=== PATIENT | male | born 1960 | race Caucasian/White ===

== ENCOUNTER → 2021-11-19 14:00 | Outpatient (BNVA) | payer MEDICAID, SELFPAY | PROVIDERS: Family Provider Family Medicine; PCP Family Medicine; Referring Provider Nurse Practitioner Family; Visit Provider Podiatrist Foot & Ankle Surgery | DX: M21.6X1 Other acquired deformities of right foot (principal); M21.6X2 Other acquired deformities of left foot; M92.61 Juvenile osteochondrosis of tarsus, right ankle; M92.62 Juvenile osteochondrosis of tarsus, left ankle; M76.61 Achilles tendinitis, right leg; M76.62 Achilles tendinitis, left leg; M79.673 Pain in unspecified foot | CPT/HCPCS: 73630; 99203; 99204 ==

== ENCOUNTER → 2022-01-20 13:12 | Outpatient (BNVA) | payer MEDICAID, SELFPAY | PROVIDERS: Family Provider Family Medicine; PCP Family Medicine; Visit Provider Podiatrist Foot & Ankle Surgery | DX: M21.6X1 Other acquired deformities of right foot (principal); M21.6X2 Other acquired deformities of left foot; M92.61 Juvenile osteochondrosis of tarsus, right ankle; M92.62 Juvenile osteochondrosis of tarsus, left ankle; M76.61 Achilles tendinitis, right leg; M76.62 Achilles tendinitis, left leg | CPT/HCPCS: 99213 ==

== ENCOUNTER → 2022-04-04 08:03 | Outpatient (BNVA) | payer MEDICAID, SELFPAY | PROVIDERS: Family Provider Family Medicine; PCP Family Medicine; Visit Provider Podiatrist Foot & Ankle Surgery | DX: M21.6X1 Other acquired deformities of right foot (principal); M21.6X2 Other acquired deformities of left foot; M92.61 Juvenile osteochondrosis of tarsus, right ankle; M92.62 Juvenile osteochondrosis of tarsus, left ankle; M76.61 Achilles tendinitis, right leg; M76.62 Achilles tendinitis, left leg; L60.3 Nail dystrophy | CPT/HCPCS: 99214 ==

== ENCOUNTER → 2022-04-21 07:52 | Outpatient (BNVA) | payer MEDICAID, SELFPAY | PROVIDERS: Family Provider Family Medicine; PCP Family Medicine; Visit Provider Podiatrist Foot & Ankle Surgery | DX: L60.2 Onychogryphosis (principal); L60.0 Ingrowing nail | CPT/HCPCS: 11750 ==

== ENCOUNTER → 2022-10-17 09:56 | Outpatient (BNVA) | payer MEDICAID, SELFPAY | PROVIDERS: Family Provider Family Medicine; PCP Family Medicine; Visit Provider Podiatrist Foot & Ankle Surgery | DX: M76.61 Achilles tendinitis, right leg (principal); M76.62 Achilles tendinitis, left leg; M21.6X1 Other acquired deformities of right foot; M21.6X2 Other acquired deformities of left foot; M92.61 Juvenile osteochondrosis of tarsus, right ankle; M92.62 Juvenile osteochondrosis of tarsus, left ankle; L60.3 Nail dystrophy | CPT/HCPCS: 99214 ==

== ENCOUNTER 2022-11-22 15:01 | Outpatient (CLI) | payer MEDICAID, SELFPAY ==
--- NOTE | 2022-11-22 15:15 | MR_ITS ---
WS: [id number] MRI RIGHT FOOT without CONTRAST. COMPARISON: Radiograph 11/19/2021 Multiplanar, multisequence imaging is performed without contrast. Very mild intermediate T2 increased signal in the distal Achilles tendon consistent with mild tendino osman. Only a small portion of the Achilles tendon is included on the sagittal projection. The attach ment site of the Achilles tendon appears normal. No thinning or enlargement. No central edema. There is a very tiny amount of fluid in the retrocalcaneal bursa. Normal marrow signal within the calcaneus . There is only minimal prominence of the posterior superior margin of the calcaneus. No joint effusi on. Plantar fascia is normal. Peroneal brevis and longus tendons as visualized are normal. Posterior tibi al and flexor digitorum and hallucis longus tendons are appropriate. No fluid within the tendon sheat h. No marrow edema. MR/MR foot RT wo con* [id number] IMPRESSION: 1. Very mild distal Achilles tendinopathy. 2. Minimal fluid in the retroperitoneal bursa. 3. Minimal Marsha deformity. 4. Visualized tendons and ligaments are normal
== END 2022-11-22 15:02 | disposition home or self-care (01) ==
PROVIDERS: PCP Family Medicine; Visit Provider Podiatrist Foot & Ankle Surgery
DX: M76.61 Achilles tendinitis, right leg (principal)
CPT/HCPCS: 73718

== ENCOUNTER → 2022-12-26 07:11 | Outpatient (BNVA) | payer MEDICAID, SELFPAY | PROVIDERS: PCP Family Medicine; Visit Provider Podiatrist Foot & Ankle Surgery | DX: M21.6X1 Other acquired deformities of right foot; M21.6X2 Other acquired deformities of left foot; M92.61 Juvenile osteochondrosis of tarsus, right ankle; M92.62 Juvenile osteochondrosis of tarsus, left ankle; M76.61 Achilles tendinitis, right leg; M76.62 Achilles tendinitis, left leg | CPT/HCPCS: 99213 ==

== ENCOUNTER → 2024-05-20 14:30 | Outpatient (BNVA) | payer MEDICAID, SELFPAY | PROVIDERS: PCP Family Medicine; Visit Provider Podiatrist Foot & Ankle Surgery | DX: M21.6X1 Other acquired deformities of right foot (principal); M21.6X2 Other acquired deformities of left foot; M92.61 Juvenile osteochondrosis of tarsus, right ankle; M92.62 Juvenile osteochondrosis of tarsus, left ankle | CPT/HCPCS: 99213 ==

== ENCOUNTER 2024-05-23 12:01 | Outpatient (CLI) | payer MEDICAID, SELFPAY ==
--- NOTE | 2024-05-23 12:15 | MR_ITS ---
WS: [id number] MRI RIGHT ANKLE WITHOUT CONTRAST. COMPARISON: 11/22/2022 MRI foot. Multiplanar, multisequence imaging is performed without contrast. There is a small amount of increased T2 signal in the central Achilles tendon which is likely consist ent with an intrasubstance tear. Similar findings were noted on the prior MRI from 2022 with slight i mprovement in the overall signal. There is no full-thickness tear. No retrocalcaneal bursitis. Achill es tendon measures 5 mm. No marrow edema or fracture. No osteochondral lesions along the talar dome. Ankle syndesmosis is norm al. No joint effusion. Peroneal tendons, flexor hallucis longus and flexor digitorum longus are normal. No signal abnormalit ies or tears. Flexor tendons are normal. Anterior and posterior talofibular ligaments are normal. The anterior inferior tibiofibular ligaments normal. Normal deltoid ligament. Normal calcaneofibular lig ament. MR/MR ankle RT wo con* [id number] IMPRESSION: 1. Increased fluid signal in the central distal Achilles tendon. No full-thick ness tear. This is most consistent with an intrasubstance tear. Similar finding s were noted within the Achilles tendon on 11/22/2022 with slight improvement. 2. Ligaments and tendons are normal. 3. No marrow edema or fracture.
== END 2024-05-23 12:02 | disposition home or self-care (01) ==
PROVIDERS: PCP Family Medicine; Visit Provider Podiatrist Foot & Ankle Surgery
DX: M76.61 Achilles tendinitis, right leg (principal); M21.6X1 Other acquired deformities of right foot; M21.6X2 Other acquired deformities of left foot
CPT/HCPCS: 73721

== ENCOUNTER → 2024-07-29 14:25 | Outpatient (BNVA) | payer MEDICAID, SELFPAY | PROVIDERS: PCP Family Medicine; Visit Provider Podiatrist Foot & Ankle Surgery | DX: M92.61 Juvenile osteochondrosis of tarsus, right ankle (principal); M92.62 Juvenile osteochondrosis of tarsus, left ankle; M21.6X1 Other acquired deformities of right foot; M21.6X2 Other acquired deformities of left foot; Z01.818 Encounter for other preprocedural examination; S86.011D Strain of right Achilles tendon, subsequent encounter; M67.873 Other specified disorders of tendon, right ankle and foot; X58.XXXD Exposure to other specified factors, subsequent encounter | CPT/HCPCS: 99214 ==

== ENCOUNTER 2024-08-30 08:29 | Day surgery (SDC) | payer MEDICAID, SELFPAY ==
[2024-08-30] VITALS (10 sets, daily range): BP systolic 108–136; BP diastolic 63–85; PULSE 54–81; RESP 16–20; TEMP 36.1–36.5; O2SAT 93–98; BMI 26.7
[2024-08-30] MEDS: sodium chloride 0.9% 1,000 ML 30 ML IV (09:01)
--- NOTE | 2024-08-30 09:21 | ANES.PREANE2 ---
Pre-Anesthetic Assessment Height/Weight: Height 1.8 m Weight 87.09 kg Temp Pulse Resp BP Pulse Ox O2 Del Method 97.7 F 54 L 18 136/85 97 Room Air 08/30/24 08:47 08/30/24 08:47 08/30/24 08:47 08/30/24 08:47 08/30/24 08:47 08/30/24 08:47 Preop Diagnosis: Achilles tendinosis, Marsha's deformity, equinus all right lower extremity Operation Date: 08/30/24 09:50 Proposed Procedures p Right Haglunds Resection(Right) - ANASTACIO Louis Right Achilles Repair(Right) - ANASTACIO Louis Right Gastrocnemius Recession(Right) - ANASTACIO Louis Right flexor tendon transfer(Right) - Juan Yap DPM Familial anesthetic complications: None Was Beta Dipesh taken within 24 hours: N/A Was Clonidine taken within 24 hours: N/A Last intake: Intake Last Liquid Date 08/29/24 Last Liquid Time 22:00 Last Solid Date 08/29/24 Last Solid Time 22:00 Social Tobacco and No alcohol Exam alert, oriented x 3, clear to auscultation bilaterally and regular rate & rhythm Airway Mallampati: Class II Dentition: chipped Pulmonary Asthma and Chronic Obstructive Pulmonary Disease GI Gastroesophageal Reflux Disease Anesthetic Plan ASA status: 3 Anesthesia: General and Regional (specify below) Risk of > 500 ml blood loss (7ml/kg in children): No Medications/Allergies Home Medications ?Medication ?Instructions ?Recorded ?Confirmed ?Last Taken ?Type ohhhduqabf-mfwifupjajkvg-eksfaakh 1 ea PO PRN PRN Migraine Headache 11/19/21 08/29/24 08/29/24 History 50 mg-325 mg-40 mg tablet fenofibrate nanocrystallized 145 145 mg PO DAILY 11/19/21 08/29/24 08/29/24 History mg tablet (Tricor) methocarbamol 500 mg tablet 750 mg PO QID 11/19/21 08/29/24 08/30/24 History oxycodone 10 mg tablet,crush 10 mg PO BID 11/19/21 08/29/24 08/29/24 History resistant,extended release 12 hr (OxyContin) ropinirole 2 mg tablet 2 mg PO DAILY 06/08/29/24 08/28/24 History rosuvastatin 20 mg tablet 20 mg PO DAILY 11/19/21 08/29/24 08/29/24 History sumatriptan succinate 100 mg tablet 100 mg PO PRN PRN Migraine Headache 11/19/21 08/29/24 08/28/24 History cetirizine 10 mg tablet 10 mg PO DAILY 08/29/24 08/29/24 08/29/24 History diphenhydramine HCl 50 mg capsule 100 mg PO BEDTIME 08/29/24 08/29/24 08/29/24 History fluticasone propionate 220 1 puff inhalation BID 08/29/24 08/29/24 Unknown History mcg/actuation HFA aerosol inhaler galcanezumab-gnlm 120 mg/mL 120 mg SUBCUT MO 08/29/24 08/29/24 08/26/24 History subcutaneous pen injector (Emgality Pen) ipratropium 20 mcg-albuterol 100 2 puff inhalation TID 08/29/24 08/29/24 Unknown History mcg/actuation mist for inhalation (Combivent Respimat) meloxicam 15 mg tablet 15 mg PO DAILY 08/29/24 08/29/24 08/29/24 History oxycodone 10 mg tablet 10 mg PO QID 08/29/24 08/29/24 08/30/24 History pantoprazole 40 mg tablet,delayed 40 mg PO BID 08/29/24 08/29/24 08/29/24 History release pregabalin 200 mg capsule 200 mg PO BID 08/29/24 08/29/24 08/30/24 History sucralfate 1 gram tablet 1 g PO QID 08/29/24 08/29/24 08/29/24 History topiramate 100 mg tablet 100 mg PO BID 08/29/24 08/29/24 08/30/24 History Allergies Allergy/AdvReac Type Severity Reaction Status Date / Time No Known Allergies Allergy Verified 08/29/24 09:28 Current Medications Generic Name Dose Route Start Last Admin Trade Name Freq PRN Reason Stop Dose Admin Sodium Chloride 1,000 mls @ 30 mls/hr 08/30/24 08:45 08/30/24 09:01 Sodium Chloride 0.9% IV 08/31/24 08:44 30 mls/hr .Q24H NIKI Administration PFSH Anesthesia Social History Smoking and tobacco/nicotine status: current every day tobacco/nicotine user Data Anesthesia Cardiac Studies: No Data to Display
--- NOTE | 2024-08-30 09:22 | ANES.PROC ---
Anesthesia Procedures Procedure/Date: 08/30/24 Nerve Block ^: Nerve Block 1: Main Anesthesia: general anesthesia Time Out Performed: Yes Consent: requested by attending/covering physician, from patient, from other, risks and benefits reviewed and patient agrees to proceed Nerve block location: popliteal (R) Anesthesia monitors applied: pulse oximetry, EKG, BP cuff and oxygen Nerve block position: supine Anesthetic Used: ropivicaine 0.5% (30 ml) and with decadron (4 mg) Ultrasound used to: recognize landmarks Nerve Stimulator Used?: No Interscalene/Femoral BLK: 4 stimuplex 21 g needle used for position and inplane approach, visualize local anesthetic spread and no vascular puncture identified Injection: neg aspiration of heme Patient Tolerated Procedure: well and no complications Complications: none
--- NOTE | 2024-08-30 09:31 | W.PM.OPSUD ---
Surgery/Procedure H&P Update DATE OF PROCEDURE: August 30, 2024 DATE H&P PERFORMED: 08/30/24 H&P UPDATE INFORMATION: I have reviewed H&P completed within last 30 days, I have examined patient prior to procedure, No changes to prior documentation and Risks and benefits of the procedure reviewed PREOP DIAGNOSIS: Achilles tendinosis, Marsha's deformity, equinus all right lower extremity PLANNED PROCEDURE: Operation Date: 08/30/24 09:50 Proposed Procedures p Right Haglunds Resection(Right) - ANASTACIO Louis Right Achilles Repair(Right) - ANASTACIO Louis Right Gastrocnemius Recession(Right) - ANASTACIO Louis Right flexor tendon transfer(Right) - Juan Yap DPM
--- NOTE | 2024-08-30 09:31 | PM.OPSURHP ---
Providers/Chief Complaint Primary Care Provider: Cinthia Cho DO Chief Complaint: M21.6X1 History of Present Illness Donnie Lindsey is a 64 year old male presenting with right-sided Marsha's deformity and Achilles tendinosis. He has been receiving conservative treatment for the past 2-1/2 years, including physical therapy, activity modifications, anti-inflammatory medications, and orthotics, all of which have been unsuccessful. An MRI of the right foot, completed on May 23, 2024, indicated increased fluid signal in the central distal Achilles tendon, consistent with tendinosis, as well as an intrasubstance tear. Additionally, an X-ray showed a pronounced Marsha's bump contributing to ongoing tendinosis. These findings have led to consideration for surgical intervention due to the persistence of symptoms and lack of improvement with nonsurgical measures. Review of Systems General: Reports: 10 or more systems reviewed and unremarkable except in HPI and below Const: Denies: fever(s) or chills Eyes: Denies: change in vision Card: Denies: chest pain or palpitations Resp: Denies: dyspnea or productive cough GI: Denies: abdominal pain, nausea or vomiting : Denies: flank pain Musc: Reports: extremity pain, joint pain, joint stiffness, limited range of motion and deformity Skin/Breast: Reports: skin tenderness; Denies: rash Neuro: Reports: difficulty walking; Denies: numbness in extremities, sensory changes or frequent falls Psych: Denies: suicidal ideation Jorge/Lymph: Denies: easy bruising Medications/Allergies Home Medications ?Medication ?Instructions ?Recorded ?Confirmed ?Last Taken ?Type gxiaadlfpc-gwuknsyrvmgoi-pbmsdoly 1 ea PO PRN PRN Migraine Headache 11/19/21 08/29/24 08/29/24 History 50 mg-325 mg-40 mg tablet fenofibrate nanocrystallized 145 145 mg PO DAILY 11/19/21 08/29/24 08/29/24 History mg tablet (Tricor) methocarbamol 500 mg tablet 750 mg PO QID 11/19/21 08/29/24 08/30/24 History oxycodone 10 mg tablet,crush 10 mg PO BID 11/19/21 08/29/24 08/29/24 History resistant,extended release 12 hr (OxyContin) ropinirole 2 mg tablet 2 mg PO DAILY 11/19/21 08/29/24 08/28/24 History rosuvastatin 20 mg tablet 20 mg PO DAILY 11/19/21 08/29/24 08/29/24 History sumatriptan succinate 100 mg tablet 100 mg PO PRN PRN Migraine Headache 11/19/21 08/29/24 08/28/24 History cetirizine 10 mg tablet 10 mg PO DAILY 08/29/24 08/29/24 08/29/24 History diphenhydramine HCl 50 mg capsule 100 mg PO BEDTIME 08/29/24 08/29/24 08/29/24 History fluticasone propionate 220 1 puff inhalation BID 08/29/24 08/29/24 Unknown History mcg/actuation HFA aerosol inhaler galcanezumab-gnlm 120 mg/mL 120 mg SUBCUT MO 08/29/24 08/29/24 08/26/24 History subcutaneous pen injector (Emgality Pen) ipratropium 20 mcg-albuterol 100 2 puff inhalation TID 08/29/24 08/29/24 Unknown History mcg/actuation mist for inhalation (Combivent Respimat) meloxicam 15 mg tablet 15 mg PO DAILY 08/29/24 08/29/24 08/29/24 History oxycodone 10 mg tablet 10 mg PO QID 08/29/24 08/29/24 08/30/24 History pantoprazole 40 mg tablet,delayed 40 mg PO BID 08/29/24 08/29/24 08/29/24 History release pregabalin 200 mg capsule 200 mg PO BID 08/29/24 08/29/24 08/30/24 History sucralfate 1 gram tablet 1 g PO QID 08/29/24 08/29/24 08/29/24 History topiramate 100 mg tablet 100 mg PO BID 08/29/24 08/29/24 08/30/24 History Allergies Allergy/AdvReac Type Severity Reaction Status Date / Time No Known Allergies Allergy Verified 08/29/24 09:28 PFSH PFSH: Social History Smoking and tobacco/nicotine status: current every day tobacco/nicotine user Vital Signs Vitals Signs: Last Vital Signs Temp 97.7 F 08/30/24 08:47 Pulse 54 L 08/30/24 08:47 Resp 18 08/30/24 08:47 BP 136/85 08/30/24 08:47 Pulse Ox 97 08/30/24 08:47 O2 Del Method Room Air 08/30/24 08:47 Weight: Weight last 48 hrs Weight 192 lb Physical Exam Narrative: EXAM NARRATIVE: Patient is alert and oriented ?3 and in no acute distress.? The following is a focused bilateral lower extremity exam. VASCULAR: Dorsalis pedis and posterior tibial arteries palpable +2.? Capillary refill time less than 3 seconds to the distal hallux bilaterally. Calf is supple and nontender proximally and distally.? No pedal edema appreciated.? Pedal hair growth present. NEUROLOGICAL: Epicritic and protopathic sensations grossly intact to the lower extremities.? +2 Achilles tendon reflex noted bilaterally.? Negative Tinel sign upon percussion of lower extremity nerves. DERMATOLOGICAL: Significantly dystrophic great toenail right greater than left greater than 1 cm thick.? Discoloration with subungual debris present.? No erythema, warmth, drainage, no wounds to the bilateral lower extremity. MUSCULOSKELETAL: Osseous prominence at the posterior superior lateral aspect of the calcaneal tubercle at insertion of Achilles tendon bilaterally.? Cavus foot type bilaterally.? Pain to palpation at insertion of Achilles tendon bilaterally.? No palpable dell or pain at the watershed zone bilaterally.? Muscle strength 5 out of 5 in all 3 cardinal planes to the bilateral foot and ankle.? 12 degrees of dorsiflexion of the bilateral ankle. CARDIOVASCULAR: S1, S2, normal rate, normal rhythm. Dorsalis pedis and posterior tibial arteries palpable. LUNGS: Clear to auscltation, no use of acessory muscles, no crackles or wheezes. Data Other data: : 1960 Age/Sex: 64 / M ADM Date: 05/23/24 Loc: RAD Room/Bed: Attending Dr: Juan Yap DPM Ordering Provider/Ordering MD: Juan Yap DPM Date of Service: 05/23/24 Procedure(s): MR ankle RT wo con* [id number] Accession Number(s): [id number] Report Number: [id number] WS: [id number] MRI RIGHT ANKLE WITHOUT CONTRAST. COMPARISON: 11/22/2022 MRI foot. Multiplanar, multisequence imaging is performed without contrast. There is a small amount of increased T2 signal in the central Achilles tendon which is likely consistent with an intrasubstance tear. Similar findings were noted on the prior MRI from 2022 with slight improvement in the overall signal. There is no full-thickness tear. No retrocalcaneal bursitis. Achilles tendon measures 5 mm. No marrow edema or fracture. No osteochondral lesions along the talar dome. Ankle syndesmosis is normal. No joint effusion. Peroneal tendons, flexor hallucis longus and flexor digitorum longus are normal. No signal abnormalities or tears. Flexor tendons are normal. Anterior and posterior talofibular ligaments are normal. The anterior inferior tibiofibular ligaments normal. Normal deltoid ligament. Normal calcaneofibular ligament. MR/MR ankle RT wo con* [id number] IMPRESSION: 1. Increased fluid signal in the central distal Achilles tendon. No full-thickness tear. This is most consistent with an intrasubstance tear. Similar findings were noted within the Achilles tendon on 11/22/2022 with slight improvement. 2. Ligaments and tendons are normal. 3. No marrow edema or fracture. Dictated By: Karen Ordonez DO Signed By: A&P Assessment and plan (1) Achilles tendinosis of right ankle: (2) Partial tear of right Achilles tendon: Qualifiers: Encounter type: subsequent encounter Qualified Code(s): S86.011D - Strain of right Achilles tendon, subsequent encounter (3) Marsha's deformity of right heel: (4) Right foot pain: (5) Equinus contracture of right ankle: Plan - Imaging: MRI of right foot on May 23, 2024, showing increased fluid signal in the central distal Achilles tendon, consistent with tendinosis, and an intrasubstance tear. X-ray confirming Marsah's bump on the right foot. 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 MRI findings reveal increased fluid signal in the Achilles tendon consistent with tendinosis, and an intrasubstance tear, both corroborated by imaging studies which demonstrated a significant bony protrusion contributing to tendon irritation. These clinical and imaging findings necessitate consideration of surgical options for symptom relief and functional improvement. Upon failure of extensive nonsurgical treatment, surgical repair of the Achilles tendon is planned. The procedure will be conducted on an outpatient basis under general anesthesia with a popliteal block. Detailed discussions regarding procedure, risks, expected outcomes, and rehabilitation were conducted. Upon failure of extensive nonsurgical treatment, surgical repair of the Achilles tendon is planned. The procedure will be conducted on an outpatient basis under general anesthesia with a popliteal block. Detailed discussions regarding procedure, risks, expected outcomes, and rehabilitation were conducted. The decision to pursue surgical intervention is based on the chronic nature of the patient's condition and his lack of response to extensive conservative management for Marsha's deformity and right-sided Achilles tendinosis. Given the MRI findings of tendinosis and an intrasubstance tear, as well as the confirmed presence of a contributing Marsha's bump, surgical intervention offers the best probability for symptom relief and functional pentecostalism. The planned procedures include Marsha's resection and Achilles tendon repair under general anesthesia with a popliteal block. Risks, benefits, and expected recovery were thoroughly outlined, ensuring the patient's understanding and agreement to proceed with the surgical plan. I reviewed at length with the patient, the risks, potential complications, benefits, alternatives, expectations, and typical outcomes associated with the surgery. The risks and potential complications were explained in detail, including but not limited to infection, wound dehiscence or soft tissue complications, bleeding and hematoma, chronic edema, neuritis or nerve damage producing numbness or chronic pain, CRPS, failure to relieve pain or worsening pain, thick / painful / unsightly scar, limited motion / stiffness, malposition, delayed union, malunion, or nonunion, fracture, reaction to implants, anesthetic complications, venous thromboembolism, and deformity recurrence. I discussed the notion of no regrets with the patient as it pertains to complications and outcomes. The patient seemed to understand the nature of the proposed care and required convalescence. They asked appropriate questions, answered to their satisfaction. They are aware no guarantees can be made as to a satisfactory outcome and they understand there may be other possible unforeseen complications or outcomes not listed here that will be treated accordingly if they arise. There were no written or implied guarantees given to the patient. They gave informed consent to proceed. Scheduled for outpatient surgery August 30, 2024, right Joe's resection and Achilles tendon repair. General anesthetic, prone, right popliteal block, mini C arm, Arthrex, 45 minutes PDMP PDMP Reviewed: Not Reviewed Coding Level of Care Code Acute Code for Chg Fwd Diagnoses Achilles tendinosis of right ankle M67.873 Partial tear of right Achilles tendon, subsequent encounter S86.011D Encounter type: subsequent encounter Marsha's deformity of right heel M92.61 Right foot pain M79.671 Equinus contracture of right ankle M24.571
[2024-08-30] MEDS: ceFAZolin 2,000 mg SDV 2000 MG IVP (09:37)
--- NOTE | 2024-08-30 10:54 | P.BOP_ITS ---
Date of Procedure: 08/18/23 Surgeon: Juan Yap DPM Accounting Policy Consultant(s): Barbara Damon Procedure(s) performed: Right Marsha's resection and Achilles tendon repair Findings of the procedure(s): Right Marsha's deformity and right Achilles tendon tear with tendinosis Estimated blood loss: 2 mL Specimen(s) removed: No specimens removed Post-operative diagnosis: Right Marsha's deformity and right Achilles tendon tear
--- NOTE | 2024-08-30 10:54 | PM.OP ---
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 CPT code 42252 2) right Achilles repair. CPT code 04049 Implants: Arthrex speed bridge with ripstop, 2-0 Vicryl, 3-0 Vicryl for nylon Specimens removed/disposition: no specimens Surgeon: Juan Yap DPM Vision Specialist: Beatriz Estimated blood loss: 2 mL 36 minutes IV fluids: See intraoperative documentations Urine output: None Complications: None Brief History: - Imaging: MRI of right foot on May 23, 2024, showing increased fluid signal in the central distal Achilles tendon, consistent with tendinosis, and an intrasubstance tear. X-ray confirming Marsha's bump on the right foot. 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 MRI findings reveal increased fluid signal in the Achilles tendon consistent with tendinosis, and an intrasubstance tear, both corroborated by imaging studies which demonstrated a significant bony protrusion contributing to tendon irritation. These clinical and imaging findings necessitate consideration of surgical options for symptom relief and functional improvement. Upon failure of extensive nonsurgical treatment, surgical repair of the Achilles tendon is planned. The procedure will be conducted on an outpatient basis under general anesthesia with a popliteal block. Detailed discussions regarding procedure, risks, expected outcomes, and rehabilitation were conducted. Upon failure of extensive nonsurgical treatment, surgical repair of the Achilles tendon is planned. The procedure will be conducted on an outpatient basis under general anesthesia with a popliteal block. Detailed discussions regarding procedure, risks, expected outcomes, and rehabilitation were conducted. The decision to pursue surgical intervention is based on the chronic nature of the patient's condition and his lack of response to extensive conservative management for Marsha's deformity and right-sided Achilles tendinosis. Given the MRI findings of tendinosis and an intrasubstance tear, as well as the confirmed presence of a contributing Marsha's bump, surgical intervention offers the best probability for symptom relief and functional yazidi. The planned procedures include Marsha's resection and Achilles tendon repair under general anesthesia with a popliteal block. Risks, benefits, and expected recovery were thoroughly outlined, ensuring the patient's understanding and agreement to proceed with the surgical plan. I reviewed at length with the patient, the risks, potential complications, benefits, alternatives, expectations, and typical outcomes associated with the surgery. The risks and potential complications were explained in detail, including but not limited to infection, wound dehiscence or soft tissue complications, bleeding and hematoma, chronic edema, neuritis or nerve damage producing numbness or chronic pain, CRPS, failure to relieve pain or worsening pain, thick / painful / unsightly scar, limited motion / stiffness, malposition, delayed union, malunion, or nonunion, fracture, reaction to implants, anesthetic complications, venous thromboembolism, and deformity recurrence. I discussed the notion of no regrets with the patient as it pertains to complications and outcomes. The patient seemed to understand the nature of the proposed care and required convalescence. They asked appropriate questions, answered to their satisfaction. They are aware no guarantees can be made as to a satisfactory outcome and they understand there may be other possible unforeseen complications or outcomes not listed here that will be treated accordingly if they arise. There were no written or implied guarantees given to the patient. They gave informed consent to proceed. Procedure: Anesthesia and Positioning: After obtaining informed consent, the patient was taken to the operating room and placed under general anesthesia with preoperative right popliteal block per anesthesia. The patient was positioned prone on the operating table with appropriate padding under the bony prominences. 2. Preparation and Drape: The right lower extremity was prepped and draped in the usual sterile fashion, ensuring that the operative site was adequately exposed. 3. Incision: A curvilinear incision was made medial to the midline over the Achilles tendon, extending from the level of the superior aspect of the calcaneal tuberosity proximally towards the mid-calf. 4. Exposure: The subcutaneous tissue was carefully dissected to expose the Achilles tendon and the underlying Marsha's deformity. Care was taken to protect the sural nerve and lesser saphenous vein. 5. Marsha's Resection: The prominent bony exostosis (Marsha's deformity) was identified. Using an osteotome and a rongeur, the exostosis was carefully resected, and the area was smoothed with a bone rasp. 6. Achilles Tendon Repair: Inspection of the Achilles tendon revealed mid substance tearing and mucoid degeneration with thickening and disorganized collagen fibers that were sharply debrided. The degenerated portion of the tendon was debrided back to healthy tissue. The Achilles tendon was then repaired using the Achilles SpeedBridge technique. This involved placing suture anchors at the calcaneal insertion of the Achilles tendon, passing FiberWire sutures through the tendon, and securing the tendon back to its anatomical position with a knotless bridging construct to allow for optimal tensioning and footprint coverage. 7. Closure: The wound was irrigated with sterile saline. The subcutaneous tissue and skin were then closed in layers using absorbable sutures for the subcutaneous layer and 4-0 nylon for the skin closure. A sterile dressing was applied. 8. Postoperative Care: The patient's leg was placed in a multilayer compressive posterior splint in equinus position to immobilize the ankle and allow for tendon healing.
--- NOTE | 2024-08-30 12:05 | ANE.PACU2 ---
Inpatient post-anesthesia follow up: Airway intact: Yes Vital signs: Temperature 97 F Pulse Rate 70 Respiratory Rate 16 Blood Pressure 125/84 Pulse Oximetry 97 Oxygen Delivery Me thod Room Air Oxygen Flow Rate 4 Fraction of Inspir ed Oxygen Hydration adequate: Yes Nausea and vomiting: No Pain level: 1 Mental status: Baseline
== END 2024-08-30 12:06 | disposition home or self-care (01) ==
PROVIDERS: PCP Family Medicine; Visit Provider Podiatrist Foot & Ankle Surgery
PROC: (CPT 27654; principal; 2024-08-30 09:40)
PROC: (CPT 27650; 2024-08-30 09:40)
DX: M92.61 Juvenile osteochondrosis of tarsus, right ankle (principal); M24.571 Contracture, right ankle; M67.873 Other specified disorders of tendon, right ankle and foot; M21.6X1 Other acquired deformities of right foot; M92.62 Juvenile osteochondrosis of tarsus, left ankle; M21.6X2 Other acquired deformities of left foot; S86.011D Strain of right Achilles tendon, subsequent encounter; J44.9 Chronic obstructive pulmonary disease, unspecified; K21.9 Gastro-esophageal reflux disease without esophagitis; F17.200 Nicotine dependence, unspecified, uncomplicated; Z79.899 Other long term (current) drug therapy
CPT/HCPCS: 27654; 28118; C1713; J0690; J1100; J2371; J2405; J2704; J2795; J3010; J3490; J7030; J9999

== ENCOUNTER 2024-09-06 12:24 | Outpatient (CLI) | payer MEDICAID, SELFPAY | END 2024-09-06 12:25 | disposition home or self-care (01) | LOC: SPT 12:25 | PROVIDERS: PCP Family Medicine; Visit Provider Podiatrist Foot & Ankle Surgery | DX: Z47.89 Encounter for other orthopedic aftercare (principal); Z98.890 Other specified postprocedural states | CPT/HCPCS: L3170; L4361 ==

== ENCOUNTER → 2024-09-19 12:45 | Outpatient (BNVA) | payer MEDICAID, SELFPAY | PROVIDERS: PCP Family Medicine; Visit Provider Podiatrist Foot & Ankle Surgery | DX: M21.6X1 Other acquired deformities of right foot (principal); M21.6X2 Other acquired deformities of left foot; M92.61 Juvenile osteochondrosis of tarsus, right ankle; M92.62 Juvenile osteochondrosis of tarsus, left ankle; Z01.818 Encounter for other preprocedural examination; S86.011D Strain of right Achilles tendon, subsequent encounter; X58.XXXD Exposure to other specified factors, subsequent encounter | CPT/HCPCS: 99024 ==

== ENCOUNTER → 2024-10-10 14:00 | Outpatient (BNVA) | payer MEDICAID, SELFPAY | PROVIDERS: PCP Family Medicine; Visit Provider Podiatrist Foot & Ankle Surgery | DX: Z98.890 Other specified postprocedural states (principal) | CPT/HCPCS: 99024 ==

== ENCOUNTER → 2024-11-21 11:29 | Outpatient (BNVA) | payer MEDICAID, SELFPAY | PROVIDERS: PCP Family Medicine; Visit Provider Podiatrist Foot & Ankle Surgery | DX: Z98.890 Other specified postprocedural states (principal) | CPT/HCPCS: 99024 ==

== ENCOUNTER → 2024-12-19 10:55 | Outpatient (BNVA) | payer MEDICAID, SELFPAY | PROVIDERS: PCP Family Medicine; Visit Provider Podiatrist Foot & Ankle Surgery | DX: Z98.890 Other specified postprocedural states (principal) | CPT/HCPCS: 99024 ==